=== PATIENT | male | born 1970 | race Caucasian/White ===

== ENCOUNTER → 2025-02-24 08:34 | Outpatient (REF) | payer SELFPAY | LOC: HWRAD 08:34 | PROVIDERS: ATTENDING PHYSICIAN Nurse Practitioner Family; FAMILY PHYSICIAN Internal Medicine | DX: Z00.00 Encounter for general adult medical examination without abnormal findings (principal); E78.2 Mixed hyperlipidemia | CPT/HCPCS: 75571 ==

== ENCOUNTER → 2025-02-24 08:56 | Outpatient (REF) | payer OTHER, SELFPAY | LOC: HWCARD 08:56 | PROVIDERS: ATTENDING PHYSICIAN Nurse Practitioner Family | DX: E78.2 Mixed hyperlipidemia (principal) | CPT/HCPCS: 93005 ==